=== PATIENT | female | born 1995 | race Caucasian/White ===

== ENCOUNTER 2016-07-26 17:13 | Emergency (ER) | payer BC ==
[2016-07-26 17:44] VITALS: BP 151/87
[2016-07-26] MEDS ORDERED: Ibuprofen TAB* 800 MG PO ONE (19:35)
[2016-07-26] MEDS ORDERED: Polymyx/Trimethoprim OPTH* 10 ML BTL RIGHT EYE SCH (20:00)
--- NOTE | 2016-07-26 20:15 | ED ---
Throat Pain/Nasal Congestion - HPI Summary HPI Summary: Pt here w/ stye in Rt eye x 2 days. Getting worse instead of better. Red, swollen and pressing onto eye - painful. Has not taken anything for pain yet but has tried warm compresses as this has worked well in the past. No drainage, fever, chills, N/V/D. She has had a URI this past weekend. Has been resting to feel better but doesn't feel this is helping. Denies use of contact lenses, make -up and no trauma to the eye - denies FB sensation. Has had styes in the past but usually don't last this long. She is very upset about missing classes and getting behind. - History of Current Complaint Hx Obtained From: Patient <Amanda Dover - Last Filed: 07/26/16 20:10> <Joseph Watkins - Last Filed: 07/26/16 22:49> - History of Current Complaint Chief Complaint: EDEyeProblem Time Seen by Provider: 07/26/16 18:36 - Allergies/Home Medications Allergies/Adverse Reactions: Allergies Allergy/AdvReac Type Severity Reaction Status Date / Time No Known Allergies Allergy Verified 07/26/16 18:21 PMH/Surg Hx/FS Hx/Imm Hx Previously Healthy: Yes Endocrine/Hematology History: Denies: Autoimmune Disease Respiratory History: Reports: Hx Seasonal Allergies Sensory History: Denies: Hx Contacts or Glasses Opthamlomology History: Denies: Hx Contacts or Glasses Infectious Disease History: No Infectious Disease History: Denies: Traveled Outside the [place] in Last 30 Days - Family History Known Family History: Positive: None - Social History Occupation: Student Alcohol Use: Rare Hx Substance Use: No Substance Use Type: Reports: None Hx Tobacco Use: No Smoking Status (MU): Never Smoked Tobacco <Amanda Dover - Last Filed: 07/26/16 20:10> Review of Systems Negative: Fever, Chills Eyes: Other - see HPI ENT: Other - see HPI Negative: Chest Pain Negative: Shortness Of Breath, Cough Gastrointestinal: Negative Negative: Abdominal Pain, Vomiting, Diarrhea, Nausea Positive: no symptoms reported Musculoskeletal: Negative Skin: Other - see HPI Negative: Rash - over face/scalp/eyelid Neurological: Negative Positive: Anxious - upset, tearful, stressed about missing classes All Other Systems Reviewed And Are Negative: Yes <Amanda Dover - Last Filed: 07/26/16 20:10> Physical Exam Triage Information Reviewed: Yes Vital Signs On Initial Exam: Initial Vitals Temp Pulse Resp BP Pulse Ox 98.8 F 93 16 151/87 100 07/26/16 17:17 07/26/16 17:17 07/26/16 17:17 07/26/16 17:17 07/26/16 17:17 Vital Signs Reviewed: Yes Appearance: Positive: Well-Appearing - crying, upset - difficult to asses pain vs. anxiety, Well-Nourished Skin: Positive: Warm, Dry - no rash/lesions over Rt eye/face/scalp Eyes: Positive: EOMI, RD, Conjunctiva Inflammed - pt is crying and B/L conjunctiva area/sclera are injected and moist as a result, Other: - well defined erythematous papule along midline palpebral margin of Rt eyelid - no pustule observed - no scabbing, no drainage; this papule is raised along external aspect and protruding along ocular border - superior palpebrae w/ focal mild edema compared to Lt - does not appear to be orbital or periorbital cellulitis. Negative: Discharge ENT: Positive: Normal ENT inspection, Hearing grossly normal, Pharynx normal, Nasal congestion, Nasal drainage - may be triggered by crying?, TMs normal. Negative: Tonsillar swelling, Tonsillar exudate Dental: Negative: Dental Fracture @, Abscess @ Neck: Positive: Supple, Nontender, No Lymphadenopathy Respiratory/Lung Sounds: Positive: Clear to Auscultation, Breath Sounds Present Cardiovascular: Positive: Normal, RRR Musculoskeletal: Positive: Normal, Strength/ROM Intact Neurological: Positive: Normal, Sensory/Motor Intact, Alert, Oriented to Person Place, Time, CN Intact II-III Psychiatric: Positive: Other - upset, tearful; no SI <Amanda Dover - Last Filed: 07/26/16 20:10> Vital Signs On Initial Exam: Initial Vitals Temp Pulse Resp BP Pulse Ox 98.8 F 93 16 151/87 100 07/26/16 17:17 07/26/16 17:17 07/26/16 17:17 07/26/16 17:17 07/26/16 17:17 Eyes: Positive: Conjunctiva Inflammed <Ndubuisi,Afoma Adenike - Last Filed: 07/26/16 22:49> Diagnostics - Vital Signs Vital Signs Temp Pulse Resp BP Pulse Ox 07/26/16 18:17 98.8 F 93 16 151/87 100 07/26/16 17:17 98.8 F 93 16 151/87 100 <Amanda Dover - Last Filed: 07/26/16 20:10> - Vital Signs Vital Signs Temp Pulse Resp BP Pulse Ox 07/26/16 18:17 98.8 F 93 16 151/87 100 07/26/16 17:17 98.8 F 93 16 151/87 100 <JuneJoseph - Last Filed: 07/26/16 22:49> EENT Course/Dx - Course Course Of Treatment: Offered pt care recommendations for her stye - advised to follow-up tomorrow w/ Dr. Nj if sx worsen - pt agrees w/ plan. <Amanda Dover - Last Filed: 07/26/16 20:10> <JuneSantamichelle Adenike - Last Filed: 07/26/16 22:49> - Diagnoses Provider Diagnoses: Hordeolum of right eye Discharge <Amanda Dover - Last Filed: 07/26/16 20:10> <JuneSantamichelle Adenike - Last Filed: 07/26/16 22:49> - Discharge Plan Condition: Stable Disposition: HOME Patient Education Materials: [employer]e (ED) Forms: *School Release Referrals: [facility] TOLU Mcintyre [Primary Care Provider] - Reece Nj MD [Medical Doctor] - Additional Instructions: You appear to have a stye along your Right eyelid. You may continue to use warm compresses as well as take ibuprofen 600mg-800mg eery 6-hours with food for pain /swelling. You may also take benadryl 50mg every 6 hours for pain/swelling although this may make you drowsy - do not drive while taking. Alternately, you may try ice if swelling is not improving with these recommendations. If your stye starts to drain, use saline eye wash to rinse discharge and continue antibiotic eye drops. Do not wear eye make-up or use contact lenses until this heals completely - if you are unsure if it has healed completely, follow-up with [facility]. *If symptoms are worse tomorrow, follow-up with Dr. Nj. Contact information provided here.
== END 2016-07-26 20:08 | disposition home or self-care (01) ==
LOC: ED 17:13
DX: H00.011 Hordeolum externum right upper eyelid (principal)
CPT/HCPCS: 99282; A9270-GY